=== PATIENT | female | born 1960 | race Caucasian/White ===

== ENCOUNTER 2021-08-26 09:12 | Emergency (ER) | payer OTHER ==
[~2021-08-26] VITALS: Ht 177.8 cm; Wt 113.4 kg
[~2021-08-26 09:12] MED LIST: ASPIRIN CHEWABL81 MG PO; CIPRO500 MG PO; COLACE 100MG C100 MG PO; FIBER THERAPY454 GM PO; FLAGYL500 MG PO; LOPRESSOR 25 MG25 MG PO; LORCET 5-325 M1 EACH PO; SYNTHROID 25 M25 MCG PO; VITAMIN D400 UNIT PO
[2021-08-26 11:13] LABS: HEMOGLOBIN 16.4 gm/dl (12.3-15.3); RED BLOOD COUNT 5.36 M/UL (4.00-5.10); WHITE BLOOD COUNT 6.3 K/UL (4.5-11.0)
[2021-08-26 11:19] LABS: BUN/CREATININE RATIO 21 (0-10)
[2021-08-26] MEDS ORDERED: PROAIR DIGIHAL90 MCG INH (15:26)
[2021-08-26] MEDS ORDERED: ZOFRAN4 MG PO (15:26)
== END 2021-08-26 15:38 | disposition home or self-care (01) ==
LOC: ER1 09:12
PROVIDERS: Emergency Medicine
DX: U07.1 COVID-19 (principal); K21.9 Gastro-esophageal reflux disease without esophagitis; I11.9 Hypertensive heart disease without heart failure; R10.13 Epigastric pain
CPT/HCPCS: 71045; 76705; 80053; 81001; 82550; 82553; 83690; 84484; 85025; 93005; 96374; 96375; 99284; J2270; J2405; M0243; Q9967; U0002

== ENCOUNTER → 2022-03-08 | Outpatient (CLI) | payer BC ==
[~2022-03-08] MED LIST changes: +PROAIR DIGIHAL90 MCG INH; +ZOFRAN4 MG PO
== END ==
LOC: MAMO 14:42
DX: Z12.31 Encounter for screening mammogram for malignant neoplasm of breast (principal)
CPT/HCPCS: 77063; 77067

== ENCOUNTER → 2022-03-23 | Outpatient (CLI) | payer BC | LOC: MAMO 13:47 | DX: R92.1 Mammographic calcification found on diagnostic imaging of breast (principal); R92.8 Other abnormal and inconclusive findings on diagnostic imaging of breast; N60.01 Solitary cyst of right breast | CPT/HCPCS: 76641; 77065; G0279 ==